=== PATIENT | female | born 1990 | race Caucasian/White ===

== ENCOUNTER 2018-11-21 19:58 | Emergency (ER) | payer OTHER ==
[~2018-11-21] VITALS: Ht 157.5 cm; Wt 69.0 kg
[2018-11-21 20:26] VITALS: BP 141/77
== END 2018-11-21 23:54 | disposition home or self-care (01) ==
LOC: ER 19:58
DX: H10.023 Other mucopurulent conjunctivitis, bilateral (principal); B34.9 Viral infection, unspecified
CPT/HCPCS: 99283